=== PATIENT | male | born 1975 | race Caucasian/White ===

== ENCOUNTER 2019-03-02 12:10 | Observation (INO) | payer BC ==
--- NOTE | 2019-03-02 12:47 | ED ---
Neurological HPI - HPI Summary HPI Summary: Time seen by provider: 1215. The patient is a 44 y/o M transferred from [place] to [facility] with concern for TIA versus CVA with neurological changes starting this morning around 0700 when he woke up. He reports that he felt okay yesterday but woke up this morning a with disorientation to place. He had a frontal headache and couldnt focus, so he went back to sleep. When he woke up again, he still felt like something was wrong, and he knew he couldnt drive, but his took him to [place]. When presenting to [place], he had a right-sided facial droop that is mostly resolved here. He additionally c/o mild aphasia with difficulty finding words, generalized weakness, and paresthesia in the left forehead. The headache is still present in the front of the face. He denies any numbness in the extremities. His current symptoms are rate 4/[address] Conley, neurology, is aware of the patient's case. No anticoagulants. No PMHx. FHx: aneurysms, cardiac disease. Nonsmoker, weekly EtOH, no substance use. - History of Current Complaint Chief Complaint: EDHeadache Stated Complaint: POSS STROKE PER EMS Time Seen by Provider: 03/02/19 12:15 Hx Obtained From: Patient Onset/Duration: Sudden Onset - 0700 this morning, Other - somewhat still present but some symptoms have resolved Timing: Sudden Onset Onset Severity: Moderate Current Severity: Mild Neurological Deficit Location: Generalized Headache Location: Frontal Pain Intensity: 4 Pain Scale Used: 0-10 Numeric Character: Weak, Paresthesia - left forehead, Other: - disoriented to location, difficulty finding words Aggravating: Nothing Alleviating: Other - resolving with time Associated Signs and Symptoms: Positive: Confusion, Weakness. Negative: Numbness - in extremities TPA Considered: No - patient started having symptoms at 0700 today - Allergy/Home Medications Allergies/Adverse Reactions: Allergies Allergy/AdvReac Type Severity Reaction Status Date / Time No Known Allergies Allergy Verified 03/02/19 12:17 Home Medications: Home Medications NK [No Home Medications Reported] 03/02/19 [History Confirmed 03/02/19] PMH/Surg Hx/FS Hx/Imm Hx Endocrine/Hematology History: Denies: Hx Diabetes Cardiovascular History: Denies: Hx Hypertension Sensory History: Reports: Hx Contacts or Glasses Denies: Hx Deafness Opthamlomology History: Reports: Hx Contacts or Glasses Denies: Hx Legally Blind Neurological History: Denies: Hx Seizures - Surgical History Surgical History: None Surgery Procedure, Year, and Place: none Infectious Disease History: No Infectious Disease History: Denies: Traveled Outside the [place] in Last 30 Days - Family History Known Family History: Positive: Cardiac Disease, Other - aneurysms - Social History Alcohol Use: Weekly Hx Substance Use: No Substance Use Type: Reports: None Hx Tobacco Use: No Smoking Status (MU): Never Smoked Tobacco Review of Systems Neurological: Other - right-sided facial droop mostly resvoled, difficulty finding words Positive: Weakness, Paresthesia - in left face. Negative: Numbness - in extremities All Other Systems Reviewed And Are Negative: Yes Physical Exam - Summary Physical Exam Summary: Constitutional: Well-developed, Well-nourished, Alert. (-) Distressed Skin: Warm, Dry HENT: Normocephalic; Atraumatic Eyes: Conjunctiva normal Neck: Musculoskeletal ROM normal neck. (-) JVD, (-) Nuchal rigidity Cardio: Rhythm regular, rate normal, Heart sounds normal; Intact distal pulses; Radial pulses are 2+ and symmetric. (-) Murmur Pulmonary/Chest wall: Effort normal. (-) Respiratory distress, (-) Wheezes, (-) Rales Abd: Soft. (-) Tenderness, (-) Distension, (-) Guarding, (-) Rebound Musculoskeletal: (-) Edema Lymph: (-) Cervical adenopathy Neuro: Alert, PERRL, Oriented x3,Mild right facial droop, Occasional word- finding difficulty SILT, Strength 5/5 BUE and BLE, (-) Dysmetria, (-) Nystagmus , ambulates w steady gait. GCS: 15. NIH: 3 (see scale). Psych: Mood and affect Normal Triage Information Reviewed: Yes Vital Signs On Initial Exam: Initial Vitals Temp Pulse Resp BP Pulse Ox 98.6 F 60 16 158/95 99 03/02/19 12:11 03/02/19 12:11 03/02/19 12:11 03/02/19 12:11 03/02/19 12:11 Vital Signs Reviewed: Yes - [place] Coma Scale Best Eye Response: 4 - Spontaneous Best Motor Response: 6 - Obeys Commands Best Verbal Response: 5 - Oriented Coma Scale Total: 15 Diagnostics - Vital Signs Vital Signs Temp Pulse Resp BP Pulse Ox 03/02/19 12:13 61 158/95 98 03/02/19 12:11 98.6 F 60 16 158/95 99 - Laboratory Lab Statement: Any lab studies that have been ordered have been reviewed, and results considered in the medical decision making process. NIH Scale - NIH Scale Level of Consciousness: Alert/Keenly Responsive Ask Patient the Month and His/Her Age: Both Correct Ask Pt to Open/Close Eyes and Pipe Inspector/Release Non-Paretic Hand: Both Correctly Best Gaze (Only Horizontal Eye Movement): Normal Visual Field Testing: No Visual Loss Facial Paresis-Pt to Smile & Close Eyes or Grimace Symmetry: Minor Paralysis Motor Function - Right Arm: No Drift-Holds 10 Seconds Motor Function - Left Arm: No Drift-Holds 10 Seconds Motor Function - Right Leg: No Drift-Holds 10 Seconds Motor Function - Left Leg: No Drift-Holds 10 Seconds Limb Ataxia-Must be out of Proportion to Weakness Present: Absent Sensory (Use Pinprick to Test Arms/Legs/Trunk/Face): Normal Best Language (Describe Picture, Name Items): Some Loss Dysarthria (Read Several Words): Slurs Some Words Extinction and Inattention: No Abnormality Total Score: 3 Re-Evaluation - Re-Evaluation First Eval Re-Evaluation Time: 14:20 Comment: After Dr. Conley consulted with the patient, he agrees with admission. Course/Dx - Course Course Of Treatment: 44 y/o male presents with mild expressive aphasia, dysarthria and right facial droop. - NIHSS 3, LKN 7 am. - Patient is out of the window for TPA, will admit to hospitalist team for stroke workup pending neurology consult - Diagnoses Provider Diagnoses: Stroke - Physician Notifications Discussed Care Of Patient With: Onesimo Conley - neurology Time Discussed With Above Provider: 14:15 Instructed by Provider To: Other - Dr. Conley consulted for the aptient in the ED. He agrees with the NIH stroke scale, and he recommends Brain MRI and Head/ Neck MRAs, which he will follow up them during admission. Dr. Fernando accepts the patient for admission at 1430. Discharge - Sign-Out/Discharge Documenting (check all that apply): Patient Departure - Patient is accepted for admission by Dr. Fernando. Patient Received Moderate/Deep Sedation with Procedure: No - Discharge Plan Condition: Stable Disposition: ADMITTED TO [facility] Referrals: No Primary Care Phys,NOPCP [Primary Care Provider] - - Billing Disposition and Condition Condition: STABLE Disposition: Admitted to [facility] - Attestation Statements Document Initiated by Samantha: Yes Documenting Scribe: Maritza Cowan Provider For Whom Samantha is Documenting (Include Credential): Dr. Rex Mclean MD Scribe Attestation: Maritza Lee scribed for Dr. Rex Mclean MD on 03/02/19 at 1439. Scribe Documentation Reviewed: Yes Provider Attestation: The documentation as recorded by the Maritza han accurately reflects the service I personally performed and the decisions made by me, Dr. Rex Mclean MD Status of Scribe Document: Viewed
[2019-03-02 15:31] LABS: TSH (Thyroid Stimulating Horm) 1.53 mcIU/mL (0.34-5.60)
--- NOTE | 2019-03-02 15:49 | CONS ---
NEUROLOGY CONSULTATION NOTE: DATE OF CONSULT: 03/02/19 CONSULTING PROVIDER: Dr. Mclean. REASON FOR CONSULT: Stroke. CHIEF COMPLAINT: Facial weakness and slurred speech. HISTORY OF PRESENT ILLNESS: Mr. Jim Wylie is a healthy 44-year-old right- handed man who is an avid runner, who noticed sudden onset of right facial droop upon awakening today on 03/02/19. The patient is here from [place] with his spouse. He last known well was last night approximately 10 p.m. The patient woke up at 7 a.m. today not feeling well, but went back to sleep. He woke up at 7:50 a.m. and noticed he was having trouble forming words, slurring his words, and had a right facial droop. He alerted his spouse who brought him to [facility]. At [facility], telestroke was done according to Lupe Hackett. The patient was deemed not a candidate for clot retrieval as his symptoms did not suggest large vessel occlusion. He was transferred to the nearest primary stroke center, which is [facility]. The patient stated that he had dysphagia screen and received aspirin at [facility]. He is aspirin naive otherwise. He currently complains of word finding difficulty. The patient also is complaining of mild, 3/10, unilateral pain in the left frontotemporal region radiating to the retroorbital region. The pain is not associated with any nausea or photophobia. The pain started this morning. He typically has had headaches in the past. He denied any visual obscuration. However, he did have mild blurry vision when waking up this morning, which has resolved. PAST MEDICAL HISTORY: Headaches and varicose vein. PAST SURGICAL HISTORY: Varicose vein surgeries. MEDICATIONS: None. ALLERGIES: None. SOCIAL HISTORY: The patient works at an [employer] business. He denied any tobacco use. He drinks alcohol on the weekends. He has 1 child. He is for 25 years. He is accompanied by his today. REVIEW OF SYSTEMS: A 14-point review of systems was obtained and otherwise negative except for what was mentioned in the HPI. PHYSICAL EXAM: Vitals: Temperature of 98.6, pulse of 54, respiratory rate of 21, oxygen saturation of 98% on room air, blood pressure is 138/87. NIH stroke scale of 3, 1 for facial droop, 1 for aphasia, 1 for dysarthria. General: Well - nourished, well-developed man, in no acute distress. Head: Atraumatic, normocephalic without any obvious abnormality. Eyes: Conjunctivae/corneas are clear. Neck is supple and symmetrical with no carotid bruits. Respiratory: Clear to auscultation bilaterally with no wheezing or rhonchi. Cardiovascular: Regular rate and rhythm with normal S1, S2. Extremities: Normal range of motion. No cyanosis. No hammertoes or high arches. Skin: No skin lesions or laceration. Psych: Broad affect and normal mood. Easy to establish rapport. Neurological: Mental status: Awake, alert, oriented to person, place, time, and general circumstance. He does have mild expressive aphasia with difficulty with prosody of words. He has no apraxia. Mild spastic dysarthria. Cranial Nerves: Pupils are equal, round, reactive to light. Extraocular muscles are intact, normal confrontation testing bilaterally, normal sensation in the face. He has right facial droop with loss of the nasolabial fold and widening of the palpebral fissure on the right. Otherwise, he is able to hear throughout the history process. Tongue is symmetric and midline with no atrophy or fasciculation. Motor: 5/5 strength in the upper and lower extremities symmetrically bilaterally. He had normal tone and bulk. Rapid alternating movements slightly reduced on the right. Reflexes: 2+ in the biceps, triceps, brachioradialis, knees, and ankles bilaterally. Downgoing plantar responses. Sensation is intact to light touch and temperature sensation in the upper and lower extremities bilaterally. Vibration is intact at the toes. Coordination: Normal cjhyhy-tt-rjry and fldk-bd-[id number] testing. Gait: Normal stance. Narrow based. No ataxia. DIAGNOSTIC STUDIES/LAB DATA: Labs, imaging, and other diagnostic testing: I do not have any records from [facility] at this current moment, but the CT of the head was reported by Lew, the ER physician kitchen assistant, that it was normal. IMPRESSION: Mr. Jim Wylie is a 44-year-old fairly healthy man who presented with sudden onset of right facial droop, dysarthria, and aphasia. Certainly, I suspect the patient has left middle cerebral artery vascular territory ischemic infarction. The CT head at [facility] was reported to be unremarkable. The etiology of the stroke is unclear since the patient has no risk factors. Other differential diagnosis includes focal seizures or complicated migraine headache, which are less likely. NIH stroke scale was 3. He was evaluated at [facility] via telestroke from the [facility], who deemed him not a candidate for IV tPA or mechanical thrombectomy. The patient was transferred to [facility] for further stroke workup. RECOMMENDATIONS: Admit to the hospitalist service. Neuro checks every 4 hours. Ordered MRI brain, MRA head, MRA neck without contrast. Ordered a transthoracic echo with bubble study to evaluate for PFO. Ordered lipid panel. Please do dysphagia screen at bedside. If negative, start the patient on aspirin 81 mg daily and Plavix 75 mg daily starting tomorrow. Also please start the patient on atorvastatin 80 mg starting tonight. Allow permissive hypertension. Lew reported that he has received 325 mg of aspirin at [facility]. Stroke education was discussed with the patient and his spouse. Please consult VETERANS' COUNSELOR to evaluate and treat. Neurology will continue to follow. [id number]/[facility] #: [id number] [facility] CENTERColin
[2019-03-02 16:24] LABS: HDL Cholesterol 51.8 mg/dL
[2019-03-02] MEDS ORDERED: Acetaminophen TAB* 325 MG PO PRN (16:36)
[2019-03-02] MEDS ORDERED: Al Hydrox/Mg Hydrox/Simet LIQ* 30 ML UDC PO PRN (16:36)
[2019-03-02] MEDS ORDERED: Ondansetron INJ* 2 MG/ML VIAL IV PRN (16:36)
[2019-03-02] MEDS ORDERED: Senna TAB 8.6 mg* TAB PO PRN (16:36)
--- NOTE | 2019-03-02 16:59 | ECHO ---
*[facility]* [place] [address] Fax #: [phone] Transthoracic Echocardiogram Patient: Jim Wylie : 1975 Study Date: 03/02/2019 Age: 44 Gender: M HR: 57 bpm Height: 72 in /182.9 cm BSA: 1.83 m^2 Weight: 139.7 lb /63.5 kg BMI: 19 kg/m^2 *Dowel Pointer: * [facility] *Referring Physician: * Onesimo Conley *Reading Physician: * Jose Mcgarry MD Indications: CVA. History: Risk factors: Nonsmoker. Conclusions Summary: - Left ventricle: The cavity size is normal. Wall thickness is at the upper limits of normal. Systolic function is normal. The estimated ejection fraction is 60-65%. - Right ventricle: The cavity size is mildly dilated. - Left atrium: The atrium is moderately dilated. - Right atrium: The atrium is moderately dilated. - Atrial septum: The atrial septum appears aneurysmal. A PFO is demonstrated by color Doppler and agitated saline contrast. Moderate amounts of contrast shunted right to left spontaneously. - Tricuspid valve: There is trace to mild regurgitation. - Aortic root: The aortic root is mildly dilated. - Ascending aorta: The ascending aorta is mildly dilated. Study data: Transthoracic echocardiogram. Procedure: Transthoracic echocardiography was performed. Image quality was good. A bubble study was performed. Complete 2D, spectral Doppler, and color flow Doppler. Location: Emergency department. Patient status: Inpatient. Patient room number: ED-12. No prior study is available for comparison. Rhythm: Bradycardia. Findings Left ventricle: The cavity size is normal. Wall thickness is at the upper limits of normal. Systolic function is normal. The estimated ejection fraction is 60-65%. Wall motion is normal; there are no regional wall motion abnormalities. Left ventricular diastolic function parameters are normal. Right ventricle: The cavity size is mildly dilated. Systolic function is normal. Systolic pressure is within the normal range. Left atrium: The atrium is moderately dilated. Right atrium: The atrium is moderately dilated. Atrial septum: The atrial septum appears aneurysmal. A PFO is demonstrated by color Doppler and agitated saline contrast. Moderate amounts of contrast shunted right to left spontaneously. Bubble study image 39. Mitral valve: The leaflets are mildly thickened. There is no evidence of stenosis. There is trace regurgitation. Aortic valve: The valve is trileaflet. The leaflets are normal thickness. There is no evidence of stenosis. There is no significant regurgitation. Tricuspid valve: The leaflets are normal thickness. There is no evidence of stenosis. There is trace to mild regurgitation. Pulmonic valve: The leaflets are normal thickness. There is no evidence of stenosis. There is trace regurgitation. Aorta: Aortic root: The aortic root is mildly dilated. Ascending aorta: The ascending aorta is mildly dilated. The aortic arch appears normal. Pericardium: There is no significant pericardial effusion. Pulmonary arteries: The main pulmonary artery is normal-sized. Systolic pressure is within the normal range. Systemic veins: Inferior vena cava: The vessel is normal in size. There is (>= 50%) respiratory change in the IVC dimension. Measurements Left ventricle Value Ref Aortic valve Value Ref SHARLENE, LAX 5.0 cm 4.2 - 5.8 Akila diam, ED 2.6 cm ----- ESD, LAX 3.3 cm 2.5 - 4.0 Peak v, S 1.46 m/sec ----- FS, LAX 34 % 25 - 43 VTI, S 27.3 cm ----- PW, ED, LAX (H) 1.1 cm 0.6 - 1.0 Mean grad, S 4.0 mm Hg ----- FS 34 % 25 - 43 Peak grad, S 9.0 mm Hg ----- Mid-wall FS 17 % LVOT/AV, VTI ratio 0.88 ----- PW, ED 1.0 cm 0.6 - 1.0 PW/ID, ED 0.19 Mitral valve Value Ref E', lat akila, TDI 15.7 cm/sec >=10.0 Peak E 0.63 m/sec --- -- E/e', lat akila, 4 Peak A 0.41 m/sec ----- TDI Decel time 158 ms ----- E', med akila, TDI 11.7 cm/sec >=7.0 Peak E/A ratio 1.5 --- -- E/e', med akila, 5 TDI Pulmonic valve Value Ref E', avg, TDI 13.7 cm/sec Peak v, S 1.15 m/sec ----- E/e', avg, TDI 5 <=14 Peak grad, S 5.0 mm Hg --- -- CA v, ED 0.85 m/sec ----- LVOT Value Ref Peak yael, S 1.06 m/sec Tricuspid valve Value Ref VTI, S 24.0 cm TR peak v 2.4 m/sec <=2.8 Mean grad, S 3 mm Hg Peak RV-RA grad, S 23 mm Hg ----- Ventricular septum Value Ref Aortic root Value Ref IVS, ED 1.0 cm 0.6 - 1.0 Root diam (H) 4.1 cm <4.0 Right ventricle Value Ref Ascending aorta Value Ref SHARLENE, LAX 3.8 cm AAo AP diam, S 4.1 cm ----- SHARLENE minor ax, A4C (H) 4.5 cm 1.9 - 3.5 mid Aortic arch Value Ref Pressure, S 26 mm Hg Arch diam 2.6 cm ----- Left atrium Value Ref Decending aorta Value Ref AP dim, ES (H) 4.20 cm 3.00 - Hannah peak yael 0.99 m/sec ----- 4.00 ML dim, A4C 4.9 cm Pulmonary artery Value Ref SI dim, A4C 6.1 cm Pressure, S 21.0 mm Hg ----- Vol/bsa, ES, 1-p (H) 45 ml/m^2 12 - 37 A4C Inferior vena cava Value Ref Vol/bsa, ES, A/L (H) 48 ml/m^2 16 - 34 Diam 1.9 cm ----- Right atrium Value Ref SI dim, ES (H) 6.2 cm 3.4 - 5.3 ML dim, ES, A4C 4.4 cm 2.6 - 4.4 SI dim, ES, A4C (H) 6.2 cm 3.4 - 5.3 Estimated RAP 3 mm Hg Legend: (L) and (H) quintin values outside specified reference range. Prepared and electronically signed by Jose Mcgarry MD 03/02/2019 16:59
[2019-03-02] MEDS: Clopidogrel TAB* 75 MG PO SCH (17:22)
[2019-03-02] MEDS: Aspirin 81 mg CHEW TAB* 81 MG TAB.CHEW PO SCH (17:22)
--- NOTE | 2019-03-02 21:11 | HP ---
CC: Dr. Conley * HISTORY AND PHYSICAL: DATE OF ADMISSION: 03/02/19 PROVIDER: GENA Schilling. ATTENDING PHYSICIAN WHILE IN THE HOSPITAL: Dr. Camila Fernando * (dictated by GENA Schilling). PRIMARY CARE PROVIDER: Dr. Hays with [facility] in [place], [place]. CONSULTING NEUROLOGIST: Dr. Conley. CHIEF COMPLAINT: Right facial droop. HISTORY OF PRESENT ILLNESS: Jim Wylie is a 44-year-old white male without significant past medical history who presents to the emergency department due to right-sided facial droop that was noted upon waking up at 7 o'clock this morning. The patient initially reported via EMS to [facility] and a CT was performed, which was negative. His providers there were then in contact with Dr. Conley and the patient was transferred to the [facility]. Of note, the patient is visiting [place] from [place]. I do not have access to outpatient records. The patient and his note that the patient was experiencing facial droop at 7 o'clock upon waking up. The facial droop did slowly start to improve around 10 o'clock this morning, according to the patient 's . Additionally, the patient's notes that the patient has been having difficulty with word finding. This is evident during evaluation as the patient at times has frustration with word finding during history-taking. The patient notes that when he woke up, he was having blurred vision, which is now resolved. The patient's gait was reportedly normal. The patient denies paresthesias, anesthesias, numbness, tingling, weakness on any of his extremities or in his face. The patient denies difficulty with balance or dizziness or double vision. EMERGENCY DEPARTMENT COURSE: When the patient arrived to the emergency department, a stat brain MRI and head and neck MRA were ordered. The patient was evaluated by Dr. Conley. The patient's vital signs upon arrival to [facility] were temperature 98.6, pulse rate 60, respiratory rate 16, oxygen saturation 99 % on room air, blood pressure 158/95. The hospitalists were then asked to evaluate the patient for admission. PAST MEDICAL HISTORY: No significant past medical history. PAST SURGICAL HISTORY: 1. History of varicose vein surgery, which is elective, on bilateral lower extremities. 2. Hernia repair. HOME MEDICATIONS: None. ALLERGIES: No known drug allergies. FAMILY HISTORY: The patient's parents are in their mid 70s and are living. Mother is healthy and his father has history of hypertension. No history of stroke or coronary artery disease in any of his parents or siblings. SOCIAL HISTORY: He and his live in [place], [place]. He denies smoking and illicit drug use. He drinks alcohol approximately 2 beverages per week. 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 The patient would like his , Manuela Wylie, to make medical decisions should he need one; her phone number is [phone]. PHYSICAL EXAMINATION GENERAL: White middle-aged male, well developed, well nourished, lying in the hospital bed, appearing comfortable, in no acute distress. His at bedside. HEENT: Head: Normocephalic, atraumatic. Eyes: PERRL. Sclerae anicteric. No nystagmus. Visual murphy are full to confrontation. ENT: Mucous membranes are moist. LUNGS: Clear to auscultation throughout. CARDIO: Regular rate and rhythm without murmurs, rubs, or gallops. ABDOMEN: Abdomen is soft, nontender, nondistended. NEURO: The patient is alert and oriented x3. The patient has a right-sided facial droop, which is noted when smiling, but is not evident at rest. Tongue is midline. The forehead creases are symmetrical. The patient is aphasic at times. EXTREMITIES: Strength is 5/5 in all extremities. Sensation to light touch is intact throughout including the face. PSYCH: Cooperative and pleasant. SKIN: Skin is warm, dry, and intact. DIAGNOSTIC STUDIES/LAB DATA: Triglycerides 44, cholesterol 155, LDL 94, HDL 51.8. Hemoglobin A1c 5.4, vitamin B12 of 519, TSH 1.53. Brain MRI and head and neck MRA, impression: There is a late acute to early subacute left thalamic infarct with no hemorrhage or significant mass effect. No acute occlusive disease, significant stenosis or aneurysms identified in the brain. No acute occlusive disease or significant stenosis noted in the neck. Transthoracic echocardiogram: Ejection fraction within normal limits. Bubble study reveals moderate amounts of contrast shunted right to left spontaneously. ASSESSMENT AND PLAN: Jim Wylie is a 44-year-old white male without significant past medical history who presents for right-sided facial drooping. The patient will be admitted in [facility] for: 1. Possible cerebrovascular accident. The patient's brain MRI demonstrates acute to early subacute infarct. The echo with bubble study reveals a positive patent foramen ovale. I will order bilateral venous Doppler studies to rule out DVT considering that there is a possible paradoxical stroke in the setting of recent 9-hour car ride. Aspirin and Plavix have already been started. Apparently, full-dose aspirin was never given in the emergency department at [place]. Dr. Conley has been consulted. CHAVEZ will be ordered for tomorrow to further evaluate the patent foramen ovale. Because the patient is from out of the [facility], there will be further workup needed for this patent foramen ovale on an outpatient basis. TSH, vitamin B12, and hemoglobin A1c were within normal limits. The patient will be made n.p.o. after midnight for the CHAVEZ in the morning. 2. FEN: The patient's electrolytes are within normal limits. 3. DVT prophylaxis: The patient has a DVT risk score of 1 and I have ordered the patient to ambulate. 4. Code status: Full code. TIME SPENT: Approximately 50 minutes were spent on this admission, approximately half of the time was spent at bedside. The case has been reviewed by my attending, Dr. Camila Fernando, and she agrees with this plan of care. GENA SCHILLING [id number]/[facility] #: [id number] MTDD
[2019-03-03 07:53] LABS: BUN/Creatinine Ratio 18.2 (8-20); Calcium 9.2 mg/dL (8.6-10.3); EGFR African American 131.6 (>60); EGFR Non-African American 108.8 (>60); Potassium 4.2 mmol/L (3.5-5.0)
[2019-03-03] MEDS: Clopidogrel TAB* 75 MG PO SCH (08:40)
[2019-03-03] MEDS: Aspirin 81 mg CHEW TAB* 81 MG TAB.CHEW PO SCH (08:40)
--- NOTE | 2019-03-03 09:22 | PN ---
Subjective Date of Service: 03/03/19 Length of Stay: 1 Days Neurology is following for stroke. Interval History: Mr. Wylie continues to have problems with memory and expression of speech. He denied any numbness or paresthesia. He denied any headache. He is really noticing trouble with his thoughts today. The patient drove from [place] to [facility] on 02/28/2019. He was in a car for eight hours. He had the stroke symptoms the following day. - MRI brain without contrast 03/02/2019: acute left thalamic stroke. He has a remote small left cerebellar stroke. - MRA head and neck without contrast 03/02/2019: no LVO or carotid stenosis. He has a more prominent vertebral artery on the left. - Doppler of the lower extremities 03/02/2019: no DVT - TTE 03/02/2019: PFO and EF of 60%. Review of Systems: Denied CP, SOB, or palpitations. Objective Active Medications: Acetaminophen (Tylenol Tab*) 650 mg PO Q4H PRN PRN Reason: PAIN - MILD Al Hydrox/Mg Hydrox/Simethicone (Maalox Plus*) 30 ml PO Q6H PRN PRN Reason: INDIGESTION Aspirin (Aspirin 81 Mg Chew Tab*) 81 mg PO DAILY [facility] Last Admin: 03/03/19 08:40 Dose: 81 mg Atorvastatin Calcium (Lipitor*) 80 mg PO 1700 [facility] Clopidogrel Bisulfate (Plavix Tab*) 75 mg PO DAILY [facility] Last Admin: 03/03/19 08:40 Dose: 75 mg Ondansetron HCl (Zofran Inj*) 4 mg IV Q4H PRN PRN Reason: NAUSEA/VOMITING Senna (Senokot 8.6 Mg Tab*) 1 tab PO BID PRN PRN Reason: CONSTIPATION Vital Signs 03/02/19 03/02/19 03/02/19 17:27 19:15 23:15 Temperature 98.9 F 97.6 F 97.7 F Pulse Rate 50 55 46 Respiratory 15 20 16 Rate Blood Pressure 136/83 129/82 109/66 (mmHg) O2 Sat by Pulse 100 99 99 Oximetry 03/03/19 03:15 Temperature 97.9 F Pulse Rate 52 Respiratory 14 Rate Blood Pressure 111/77 (mmHg) O2 Sat by Pulse 99 Oximetry Intake and Output Last 24 Hours 03/01/19 03/02/19 03/03/1909/19 06:59 06:59 06:59 06:59 Intake Total 240 Balance 240 Weight 203 lb 6.4 oz Intake: Oral 240 Oxygen Devices in Use Now: None Neurology Exam: General: Well nourished, well developed, and in no acute distress HEENT: Normocephelic/atraumatic, sclera anicteric, mucous membranes moist Neck: Supple Chest: Clear to auscultation bilaterally Cardiovascular: Regular rate and rhythm without murmurs, rubs, gallops Extremities: No clubbing, cyanosis, or edema Neurological Findings: Awake, alert, and oriented to person, place, and time. Speech: fluent without dysarthria. He has expressive aphasia and mild right apraxia. Cranial Nerve: PERRL, EOM intact, right facial droop with loss of the NL fold. Motor: s/s throughout, proximal and distal extremities x4 tone/bulk normal Sensation: intact to LT/PP bilaterally upper and lower extremities Deep Tendon Reflex: 2+ symmetric in the upper/lower extremities, Babinski - down going Finger to nose, rapid alternating movements intact without tremor, no dysdiadochokinesia Gait: intact with good arm swing and stride Result Diagrams: 03/03/19 06:50 Assessment/Plan Mr. Jim Wylie is a 44-year-old man with history of varicose veins, ?DVT, who presented with sudden onset right facial droop and aphasia. Examination is consistent with expressive aphasia, minld apraxia, and right facial droop. Prior to the symptoms, he drove eight hours from [place] to [place] at the [facility]. 1. Acute left thalamic nonhemorrhagic ischemic stroke manifesting as cognitive dysfunction, memory impairment, right facial droop, and aphasia. 2. Remote left asymptomatic cerebellar stroke 3. Hx of ?DVTs 4. PFO Recommendations: - Ordered MRV of the pelvis to rule out any iliac DVTs. If positive, he would need anticoagulation therapy. If negative, continue DAPT for 21 days, then switch to aspirin 325 mg daily. - Started atorvastatin 80 mg nightly - A CHAVEZ can be done as an outpatient when he is evaluated for PFO closure. He can follow-up with cardiology near his home - Recommend frequent stops when driving back home to [place] to prevent any prolong sitting. - He will need a hypercoagulable work-up to check for the following: homocystein , MTHFR, Protein C, Protein S, Lupus anticoagulant, DRVVT, antiphospholipid antibody, anticardiolipin, Factor V Leiden mutation, and antithrombin gene mutation. - Secondary stroke prevention discussed with the patient and spouse - Will need outpatient TRIGONOMETRY TEACHER treatment - DVT prophylaxis: SCDs and early ambulation - After the MRV, depending on the results, the patient may be ready for discharge.
[2019-03-03] MEDS ORDERED: Atorvastatin* 80 MG TAB PO SCH (17:00)
[2019-03-03] MEDS ORDERED: Gadobenate* (CONTRAST) 529 MG/ML 10 ML SDV IV ONE (17:12)
--- NOTE | 2019-03-03 20:54 | PN ---
Subjective Date of Service: 03/03/19 Interval History: Patient reported multiple brief episodes of disassociation which he has difficulty describing. The episodes lasted less than 10 seconds and his witnessed them. She says he would close his eyes, like he was wincing for several seconds, and then open them and behave normally. The patient denies SOB , chest pain, palpitations, visual changes. He reports a frontal headache at time of evaluation and tylenol was administered. Objective Active Medications: Acetaminophen (Tylenol Tab*) 650 mg PO Q4H PRN PRN Reason: PAIN - MILD Last Admin: 03/03/19 13:08 Dose: 650 mg Al Hydrox/Mg Hydrox/Simethicone (Maalox Plus*) 30 ml PO Q6H PRN PRN Reason: INDIGESTION Aspirin (Aspirin 81 Mg Chew Tab*) 81 mg PO DAILY [facility] Last Admin: 03/03/19 08:40 Dose: 81 mg Atorvastatin Calcium (Lipitor*) 80 mg PO 1700 [facility] Last Admin: 03/03/19 20:29 Dose: 80 mg Clopidogrel Bisulfate (Plavix Tab*) 75 mg PO DAILY [facility] Last Admin: 03/03/19 08:40 Dose: 75 mg Ondansetron HCl (Zofran Inj*) 4 mg IV Q4H PRN PRN Reason: NAUSEA/VOMITING Senna (Senokot 8.6 Mg Tab*) 1 tab PO BID PRN PRN Reason: CONSTIPATION Oxygen Devices in Use Now: None Appearance: WD WN middle age, white male laying in hospital bed appearing in NAD , at bedside Eyes: No Scleral Icterus, PERRLA, - - visual murphy full to confrontation Ears/Nose/Mouth/Throat: Mucous Membranes Moist, - - mild right facial droop with speaking Neck: NL Appearance and Movements; NL JVP Respiratory: Symmetrical Chest Expansion and Respiratory Effort, Clear to Auscultation Cardiovascular: NL Sounds; No Murmurs; No JVD, RRR Abdominal: - - abd soft, nontender, nondistended Extremities: No Edema, No Clubbing, Cyanosis Skin: No Rash or Ulcers Neurological: Alert and Oriented x 3, NL Sensation, NL Muscle Strength and Tone Result Diagrams: 03/03/19 06:50 Assess/Plan/Problems-Billing 44 yo male without PMHx presents with right sided facial droop found to have chronic and acute CVA. - Patient Problems (1) CVA (cerebral vascular accident) Current Visit: Yes Status: Acute Code(s): I63.9 - CEREBRAL INFARCTION, UNSPECIFIED SNOMED Code(s): 606976615 Comment: -presented with right facial droop -on brain MRI, found to have left thalamic ischemic stroke in addition to a remote cerebellar stroke -positive bubble study on TTE; CHAVEZ pending, was supposed to be performed today and was not for unclear reasons; would like CHAVEZ to r/o thrombus -dopplers and MRV pelvis negative for DVT -PRODUCTION CONTROL TECHNOLOGIST evaluated patient and ok with regular diet -because patient is from [place], will need further workup there for closure of PFO and a hypercoagulability workup -continue statin, ASA and plavix -Appreciate input from neurology, Dr. Conley (2) DVT prophylaxis Current Visit: Yes Status: Acute Code(s): Z29.9 - ENCOUNTER FOR PROPHYLACTIC MEASURES, UNSPECIFIED SNOMED Code(s): 500985497 Comment: -ambulation (3) Full code status Current Visit: Yes Status: Acute Code(s): Z78.9 - OTHER SPECIFIED HEALTH STATUS SNOMED Code(s): 298841352 Status and Disposition: inpatient pending CHAVEZ
[2019-03-04 09:00] LABS: ABS Lymphocytes 0.7 10^3/ul (1.0-4.8); ABS Monocytes 0.3 10^3/ul (0-0.8); ABS Neutrophils 3.1 10^3/ul (1.5-7.7); Eosinophil % 1.1 %; Hematocrit 51 % (42-52); Hemoglobin 17.6 g/dL (14.0-18.0); Lymphocyte % 16.1 %; Mean Corpuscular HGB Conc 35 g/dL (31-36); Mean Corpuscular Hemoglobin 31 pg (27-31); Mean Corpuscular Volume 91 fL (80-94); Mean Platelet Volume 7.8 fL (7.4-10.4); Nucleated Red Blood Cells % 0.2; Platelet Count 203 10^3/uL (150-450); Red Blood Count 5.59 10^6 /uL (4.18-5.48); Red Cell Distribution Width 13 % (10-15); White Blood Count 4.1 10^3/uL (3.5-10.8)
[2019-03-04 09:07] LABS: INR 1.25 (0.82-1.09)
[2019-03-04 09:16] LABS: BUN/Creatinine Ratio 17.6 (8-20); Calcium 9.6 mg/dL (8.6-10.3); EGFR African American 137.8 (>60); EGFR Non-African American 113.9 (>60); Potassium 4.2 mmol/L (3.5-5.0)
[2019-03-04] MEDS ORDERED: fentaNYL* 50 MCG/ML 2 ML VIAL (100 MCG VIAL) ONE (09:19)
[2019-03-04] MEDS ORDERED: Midazolam* 1 MG/ML 5 ML VIAL (5 MG) ONE (09:19)
[2019-03-04] MEDS ORDERED: Naloxone* 0.4 MG/ML 1 ML VIAL ONE (09:20)
[2019-03-04] MEDS ORDERED: Lidocaine 2% VISCOUS* 15 ML UDC ONE (09:20)
[2019-03-04] MEDS ORDERED: Flumazenil* 0.1 MG/ML 5 ML MDV ONE (09:20)
[2019-03-04] MEDS: Clopidogrel TAB* 75 MG PO SCH (12:38)
[2019-03-04] MEDS: Aspirin 81 mg CHEW TAB* 81 MG TAB.CHEW PO SCH (12:38)
[2019-03-04 14:18] VITALS: BP 119/74
--- NOTE | 2019-03-04 14:29 | TEE ---
*[facility]* [place] [address] Fax #: [phone] Transesophageal Echocardiogram Patient: Jim Wylie : 1975 Study Date: 03/04/2019 Age: 44 Gender: M HR: 65 bpm Height: 72 in /182.9 cm BSA: 2.15 m^2 Weight: 198 lb /90 kg BMI: 26.9 kg/m^2 *Laborer Pipeline: * Lori Johnson RDCS RN *Referring Physician: * O'Chioma August *Reading Physician: * Jose Mcgarry MD Indications: CVA. History: Risk factors: Nonsmoker. Conclusions Summary: - Left ventricle: Systolic function is normal. The estimated ejection fraction is 60-65%. - Left atrium: The atrium is mildly dilated. There is no evidence of a thrombus in the atrial cavity or appendage. - Atrial septum: The atrial septum appears aneurysmal. The bubble study is positive. There is spontaneous shunting of moderate amounts of contrast right to left across the atrial septum. - Mitral valve: The leaflets are redundant with possible mitral valve prolapse. There is trace to mild regurgitation. Multiple small central jets. Redundant chordae. - Tricuspid valve: There is mild regurgitation. - Pulmonic valve: There is mild regurgitation. - Aortic root: The aortic root is mildly dilated. - Ascending aorta: The ascending aorta is mildly dilated. There is mild atherosclerotic plaque seen in the aortic arch and descending aorta. Study data: Diagnostic Transesophageal Echocardiogram Consent: The risks and benefits of the procedure, including alternatives were discussed with the patient and/or their health care community health program representative and written informed consent was obtained. Procedure: Initial setup: The patient was brought to the laboratory in the fasting state.Intravenous access was obtained. Surface ECG leads, heart rate, heart rhythm, blood pressure measurements, pulse oximetric signals, and mainstream end-tidal CO2 tracings were monitored throughout the procedure. Sedation. Moderate sedation was administered by nursing staff. History and physical as well as labs were reviewed. An oral bite block was inserted for protection of oral dentition. The patient was placed in the left lateral decubitus position. Topical anesthesia was obtained using viscous lidocaine. A transesophageal probe was inserted by the attending pearl cutter with some difficulty. Transesophageal echocardiography was performed, image quality was good, and all standard views were attempted within the limitations of patient tolerance and safety. Multiple 2D, color flow Doppler and spectral Doppler images were obtained. The transesophageal probe was removed. A bubble study was performed. Images 65 and 66. Location: Procedure room. Patient status: Inpatient. Patient room number: 451. Study completion: The patient tolerated the procedure well. There were no complications. Administered medications: Midazolam 8 mg IV. Fentanyl 25 mcg IV. Rhythm: Normal sinus rhythm. Findings Left ventricle: The cavity size is normal. Systolic function is normal. The estimated ejection fraction is 60-65%. Wall motion is normal. There are no regional wall motion abnormalities. Right ventricle: The cavity size is normal. Systolic function is normal. Left atrium: The atrium is mildly dilated. The appendage is large. Emptying velocity is normal. There is no evidence of a thrombus in the atrial cavity or appendage. No spontaneous echo contrast is observed. Right atrium: The atrium is at the upper limits of normal in size. Atrial septum: The atrial septum appears aneurysmal. The bubble study is positive. There is spontaneous shunting of moderate amounts of contrast right to left across the atrial septum. Mitral valve: The leaflets are redundant with possible mitral valve prolapse. There is no evidence of stenosis. There is trace to mild regurgitation. Multiple small central jets. Redundant chordae. Aortic valve: The valve is structurally normal. The valve is trileaflet. Cusp separation is normal. There is no evidence of stenosis. There is no regurgitation. Tricuspid valve: The valve is structurally normal. There is no evidence of a vegetation. There is mild regurgitation. Pulmonic valve: The valve is structurally normal. There is no evidence of a vegetation. There is mild regurgitation. Aorta: Aortic root: The aortic root is mildly dilated. Ascending aorta: The ascending aorta is mildly dilated. There is mild atherosclerotic plaque seen in the aortic arch and descending aorta. Pericardium: There is no pericardial effusion. Pulmonary arteries: Systolic pressure is within the normal range. Systemic veins: Inferior vena cava: The vessel is appears normal. Superior vena cava: The vessel is appears normal. Pulmonary veins: Visualization of the pulmonary venous anatomy is incomplete, but a significant abnormality is unlikely. 2 of 4 veins are visualized. Measurements Aortic valve Value Ref Ascending aorta Value Ref Josselyn diam, ED 2.5 cm ---- AAo AP diam, S 3.7 cm ---- Aortic root Value Ref Root diam 4.0 cm <4.3 Legend: (L) and (H) quintin values outside specified reference range. Prepared and electronically signed by Jose Mcgarry MD 03/04/2019 14:29
--- NOTE | 2019-03-04 23:49 | DS ---
CC: Dr. Hays with [facility] in [place], [place] * DISCHARGE SUMMARY: DATE OF ADMISSION: 03/02/19 DATE OF DISCHARGE: 03/04/19 PRIMARY CARE PROVIDER: Dr. Hays with [facility] in [place], [place]. ATTENDING PHYSICIAN: Dr. Eason * (dictated by Margarita Laws NP). PRIMARY DIAGNOSIS: Cerebrovascular accident. CONSULTATIONS WHILE IN THE HOSPITAL: Dr. Conley, Neurology. STUDIES WHILE IN THE HOSPITAL: 1. Brain MRI: Impression: There is a late acute to early subacute left thalamic infarct with no hemorrhage or significant mass effect. No acute occlusive disease, significant stenosis or aneurysm was identified in the brain. No acute occlusive disease or significant stenosis identified in the neck. 2. Head MRA: Impression: There is a late acute to early subacute left thalamic infarct with no hemorrhage or significant mass effect. No acute occlusive disease, significant stenosis or aneurysm identified in the brain. No acute occlusive disease or significant stenosis identified in the neck. 3. Neck MRA: Impression: There is an acute to early subacute left thalamic infarct with no hemorrhage or significant mass effect. No acute occlusive disease, significant stenosis or aneurysms identified in the brain. No acute occlusive disease or significant stenosis identified in the neck. 4. Transthoracic echo: Impression: Left ventricle: The cavity size is normal. Wall thickness is at upper limits of normal. Systolic function is normal. The estimated ejection fraction is 60% to 65%. Right ventricle: The cavity is mildly dilated. Left atrium: The atrium is moderately dilated. Right atrium: The atrium is moderately dilated. Atrial septum: The atrial septum appears aneurysmal. A PFO is demonstrated by color Doppler and agitated saline contrast. Moderate amounts of contrast shunted right to left spontaneously. Tricuspid: There is trace to mild regurgitation. Aortic root: The aortic root is mildly dilated. Ascending aorta: The ascending aorta is mildly dilated. 5. EKG: Sinus bradycardia. 6. Venogram MRI: Unremarkable MRV of the pelvis. No evidence of deep vein thrombosis involving the pelvic veins. 7. Transesophageal echocardiogram: Left ventricle: Systolic function is normal. The estimated ejection fraction is 60% to 65%. Left atrium: The atrium is mildly dilated. There is no evidence of a thrombus in the atrial cavity or appendage. Atrial septum: The atrial septum appears aneurysmal. The bubble study is positive. There is spontaneous shunting of a moderate amount of contrast to the right to left across the atrial septum. Mitral valve: The leaflets are redundant with possible mitral valve prolapse. There is trace to mild regurgitation. Multiple small central jets. Redundant chordae. Tricuspid : There is mild regurgitation. Pulmonic valve: There is mild regurgitation. Aortic root: The aortic root is mildly dilated. Ascending aorta: The ascending aorta is mildly dilated. There is mild atherosclerotic plaque seen in the aortic arch and descending aorta. DISCHARGE HOME MEDICATIONS: New home medications: 1. Clopidogrel 75 mg p.o. daily x21 days. 2. Atorvastatin 80 mg p.o. 1700. 3. Aspirin 81 mg p.o. daily x21 days. HISTORY OF PRESENT ILLNESS/HOSPITAL COURSE: Mr. Wylie is a 44-year-old white male without any past medical history, who resented to the emergency department on 03/02/19 with complaints of right-sided facial droop upon awakening. Please see history and physical dictated by GENA Schilling, for complete summary of the events leading up to this hospitalization, but in short, while in the emergency department, the patient was evaluated by Dr. Conley from Neurology. The patient had brain, head, and neck imaging, which revealed an early subacute left thalamic infarct. The patient also had an echocardiogram while in the emergency department, which was positive for a PFO. The patient was then admitted to the telemetry floor for further evaluation and treatment. While on telemetry, the patient had remained in sinus rhythm to sinus bradycardia. The patient's vital signs remained stable. Given the patient's finding of a PFO, he underwent further imaging including venous Doppler of bilateral lower extremities, which was negative and a venogram MRI of his pelvis , which was also negative. The patient also had a CHAVEZ to further evaluate the patient's foramen ovale and evaluate for a possible clot. As mentioned above, the patient's CHAVEZ was unremarkable except for known PFO. The patient was seen by Dr. Conley again while inpatient. It was decided that the patient would be discharged on dual antiplatelet therapy of Plavix and aspirin 81 mg x21 days. After 21 days, the patient would then stop Plavix and baby aspirin, but start a full dose aspirin of 325 mg daily. In addition, the patient was started on statin medication. The patient was educated by this designer writer and Dr. Conley at length about the importance of following up with his primary care provider and commercial real estate appraiser for possible closure of PFO given his increased risk of stroke. The patient and stated understanding. The patient is stable for discharge home. REVIEW OF SYSTEMS: The patient reports previous right-sided facial droop is improving. In addition, he reports he is no longer having word finding difficulties as he was on admission. He also denies blurred vision, which was previously reported on admission. The patient denies paresthesias, numbness, tingling, weakness, dizziness, double vision, chest pain, shortness of breath, nausea, vomiting. A 14-point review of systems was completed and all others were negative. PHYSICAL EXAMINATION: Vital Signs: Temp 98.0, HR 64, RR 16, O2 saturation 98% on room air, BP 119/ 74. General: Mr. Wylie is a 44-year-old male who is sitting in the bed. Appears to be in no acute distress. Appears stated age. HEENT: EOMs intact. PERRLA. Oral mucosa is moist without lesion. Posterior pharynx is clear. Neck: Supple. No lymphadenopathy. Cardiac: S1, S2 present. No murmurs, rubs, or gallops. Regular rate and rhythm. Respiratory: Lungs are clear to auscultation. Good aeration. No wheezes, rhonchi, or rubs. No accessory muscle use. Abdomen: Soft, nontender. Bowel sounds normoactive. Extremities: No edema. No clubbing or cyanosis. Pedal pulses are 2+ bilaterally. Musculoskeletal: No pain or deformities. Skin: Grossly intact. Neuro: The patient has slight right-sided facial droop. Remainder of cranial nerves are grossly intact. Coordination is intact. No drift. Strength is 5/5 in upper and lower extremities. DIAGNOSTIC STUDIES/LABORATORY DATA: WBC 4.1, hemoglobin 16.7, hematocrit 51, platelets 203,000. Sodium 138, potassium 4.2, chloride 103, carbon dioxide 26, BUN 13, creatinine 0.74, glucose 102, hemoglobin A1c 5.4. Triglycerides 44, cholesterol 155, LDL 94, HDL 51.8. Vitamin B12 of 519, TSH 1.53. DISCHARGE PLAN/FOLLOWUP: 1. Cerebrovascular accident: The patient had acute left thalamic nonhemorrhagic ischemic stroke manifesting as cognitive dysfunction, memory impairment, right facial droop and aphasia. The patient's symptoms have resolved with the exception of a slight right facial droop. The patient will be discharged on DAPT for 21 days, then switched to aspirin 325 mg daily. The patient will continue his atorvastatin 81 mg nightly. The patient will be driving back to [place] and has been encouraged to make frequent stops driving back to prevent prolonged sitting. The patient will follow up with his primary care on Thursday. We would recommend hypercoagulable workup to check for the following: Homocysteine, MTHFR, protein C, protein S, lupus anticoagulant, dRVVT, antiphospholipid antibody, anticardiolipin, factor V Leiden mutation, antithrombin gene mutation. In addition, we would recommend the patient is referred to Cardiology for possible closure of his PFO. Finally, the patient should be referred to a neurologist local to him to follow up after this event. 2. Followup: The patient should follow up with his primary care in 1 to 3 days. He reports he already has an appointment on Thursday, at which point he will discuss referral for Cardiology and Neurology. is at bedside and agrees with this plan. 3. Education: The patient and are educated on the signs and symptoms of new or worsening conditions and when to return to the emergency department. Both stated understanding. TIME SPENT: Approximately 35 minutes were spent on this discharge, greater than half the time was spent [id number] with the patient discussing discharge plans and instructions. This plan was discussed with my attending, Dr. Eason, who is in agreement with my plan of care. This is a summarized report of a complex medical history and hospital stay. For further details, please see the entire medical record. Reviewed by MARGARITA LAWS NP 03/09/19 @ [id number] #: [id number] SAL
== END 2019-03-04 16:49 | disposition home or self-care (01) ==
LOC: ED 12:10 → MEDTELE 16:36
PROVIDERS: ADMIT Internal Medicine; ATTEND Internal Medicine
DX: I63.9 Cerebral infarction, unspecified (principal); R00.1 Bradycardia, unspecified; Z79.82 Long term (current) use of aspirin; Z79.899 Other long term (current) drug therapy; R53.1 Weakness
CPT/HCPCS: 36415; 70544; 70547; 70551; 72198; 80048; 80061; 82607; 83036; 84443; 85025; 85610; 93005; 93306; 93312; 93325; 93970; 99156; 99157; 99285; A9270-GY; A9577; C8920; G0378; G9168-GN-CK; G9169-GN-CK; J2250; J2310; J3010